=== PATIENT | male | born 1985 | race American Indian/Alaskan Native ===

== ENCOUNTER 2017-01-09 09:31 | Emergency (ER) | payer OTHER ==
[2017-01-09 09:39] VITALS: TEMP 98.3; O2SAT 96
--- NOTE | 2017-01-09 09:53 | C.PDOC ---
History Of Present Illness NEW ONSET CP SINCE 545. PS AWOKE W SX. L CHEST LOCALIZED, "SPASM" INTERMIT LASTING SECONDS. NO TRIGGERING FACTORS. ?ASSOC SOB. CURRENTLY ASYMPT. DENIES PMD , DRUG USE. SP ADVIL 2 TABS @ 0800 WO IMPROVE EXAM NEG Time Seen by Provider: 01/09/17 09:41 Chief Complaint (Nursing): Chest Pain History Per: Patient History/Exam Limitations: no limitations Onset/Duration Of Symptoms: Hrs, Intermittent Episodes Current Symptoms Are (Timing): Gone Quality: Other ("SPASM") Associated Symptoms: denies: Dyspnea, Diaphoresis, Syncope Recent travel outside of the [place]: No Past Medical History Reviewed: Historical Data, Nursing Documentation, Vital Signs Vital Signs: Last Vital Signs Temp 98.3 F 01/09/17 09:36 Pulse 69 01/09/17 09:36 Resp 20 01/09/17 09:36 BP 128/86 01/09/17 09:36 Pulse Ox 96 01/09/17 11:58 Family History: States: Unknown Family Hx - Social History Hx Alcohol Use: Yes Hx Substance Use: No - Immunization History Hx Tetanus Toxoid Vaccination: No Hx Influenza Vaccination: No Hx Pneumococcal Vaccination: No Review Of Systems Except As Marked, All Systems Reviewed And Found Negative. Constitutional: Negative for: Fever, Chills Cardiovascular: Positive for: Chest Pain. Negative for: Palpitations Respiratory: Negative for: Cough, Wheezing Gastrointestinal: Negative for: Nausea, Vomiting, Abdominal Pain Skin: Negative for: Rash Physical Exam - Physical Exam Appears: Non-toxic, No Acute Distress Skin: Normal Color, Warm, Dry Head: Atraumatic, Normacephalic Oral Mucosa: Moist Chest: Symmetrical Cardiovascular: Rhythm Regular Respiratory: Normal Breath Sounds, No Rales, No Rhonchi, No Wheezing Gastrointestinal/Abdominal: Soft, No Tenderness, No Guarding, No Rebound Back: Normal Inspection Extremity: Normal ROM, Capillary Refill (< 2 sec. ) Neurological/Psych: Oriented x3, Normal Speech, Normal Cognition ED Course And Treatment - Laboratory Results Result Diagrams: 01/09/17 10:04 01/09/17 10:04 ECG: Interpreted By Me ECG Rhythm: Sinus Rhythm ECG Interpretation: Normal Rate From EC O2 Sat by Pulse Oximetry: 96 (RA) Pulse Ox Interpretation: Normal - Radiology CXR: Viewed By Me, Read By Radiologist CXR Interpretation: Yes: No Acute Disease Progress - Re-Evaluation Re-evaluation Note: 01/09/17 09:45 TYLENOL, ASPIRIN 325mg, NITRO SL GIVEN. BLOODWORK, EKG, CXR ORDERED. 01/09/17 11:32 FEELS BETTER. PT ADVISED TO HAVE 2ND TROP REPEAT. AWARE OF RISKS BENEFITS, DOES NOT WISH SERIAL TROP TESTING. REQUESTING ALBUTEROL DOSE. VSS NARD APPEARS COMFORTABLE. 01/09/17 12:23 SP ALBUTEROL FEELS BETTER. STILL WISHES TO LEAVE. AMA - Data Reviewed Data Reviewed: Lab, Diagnostic imaging, EKG Disposition Counseled Patient/Family Regarding: Studies Performed, Diagnosis, Need For Followup - Disposition Referrals: [facility] [Outside] [facility] [Outside] Disposition: AGAINST MEDICAL ADVICE Disposition Time: 12:24 Condition: STABLE Instructions: Chest Pain (ED), Against Medical Advice (ED) Forms: [employer] ([place]), Work Excuse - Clinical Impression Clinical Impression: Chest pain - Scribe Statement The provider has reviewed the documentation as recorded by the [facility] [place] Attestation: All medical record entries made by the Scribe were at my direction and personally dictated by me. I have reviewed the chart and agree that the record accurately reflects my personal performance of the history, physical exam, medical decision making, and the department course for this patient. I have also personally directed, reviewed, and agree with the discharge instructions and disposition.
[2017-01-09] MEDS ORDERED: Aspirin 325 mg EC Tablets PO STA (09:54)
[2017-01-09 10:09] LABS: BASO % 0.5 % (0.0-2.0); EOS # 0.1 K/uL (0.0-0.7); EOS % 1.4 % (0.0-4.0); HEMATOCRIT 41.4 % (35.0-51.0); MEAN CELL VOLUME 92.9 fL (80.0-94.0); MEAN CORPUSCULAR HGB CONC 34.5 g/dL (33.0-37.0); MEAN PLATELET VOLUME 8.4 fL (7.2-11.7); MONO # 0.4 K/uL (0.0-0.8); MONO % 8.7 % (0.0-10.0); NRBC % 0.1 % (0.0-2.0); WHITE BLOOD COUNT 4.7 K/uL (4.8-10.8)
[2017-01-09] MEDS ORDERED: Nitroglycerin 2% Ointment Foilpak UD TOP ONE (10:09)
[2017-01-09] MEDS ORDERED: Aspirin 325 mg EC Tablets PO ONE (10:10)
--- NOTE | 2017-01-09 10:13 | RAD ---
HISTORY: chest pain COMPARISON: None available. TECHNIQUE: Chest PA and lateral FINDINGS: LUNGS: No focal consolidation. Please note that chest x-ray has limited sensitivity for the detection of pulmonary masses. PLEURA: No significant pleural effusion identified. No definite pneumothorax . CARDIOVASCULAR: The cardiomediastinal silhouette appears within normal limits of size. OSSEOUS STRUCTURES: No acute osseous abnormality identified. VISUALIZED UPPER ABDOMEN: Unremarkable. OTHER FINDINGS: None. IMPRESSION: No focal consolidation, significant pleural effusion, or definite pneumothorax identified.
[2017-01-09 10:36] LABS: CHLORIDE 100 mmol/L (98-107); SODIUM 140 mmol/L (132-148)
[2017-01-09 10:37] LABS: POTASSIUM 3.9 mmol/L (3.6-5.2)
[2017-01-09 10:39] LABS: CARBON DIOXIDE 24 mmol/L (22-30); GFR AFRICAN-AMERICAN > 60
[2017-01-09 10:40] LABS: BLOOD UREA NITROGEN 11 mg/dL (9-20); CALCIUM 8.4 mg/dl (8.6-10.4); GLUCOSE,RANDOM 80 mg/dL (75-110)
[2017-01-09] MEDS ORDERED: Albuterol 0.083% Inhal Sol (2.5 mg/3 mL) UD INH STA (11:22)
[2017-01-09] MEDS ORDERED: Albuterol 0.083% Inhal Sol (2.5 mg/3 mL) UD ONE (11:56)
[2017-01-09 12:24] VITALS: BP 113/73; PULSE 62; RESP 13
--- NOTE | 2017-01-10 12:59 | CARD ---
APPROVED REPORT EKG Measurement Heart [id number] <Conclusion> Normal sinus rhythm Moderate voltage criteria for LVH, may be normal variant Borderline ECG
== END 2017-01-09 12:37 | disposition left against medical advice (07) ==
LOC: C.ER 09:31
DX: R07.9 Chest pain, unspecified (principal)